=== PATIENT | female | born 1995 | race Caucasian/White ===

== ENCOUNTER 2018-01-31 15:08 | Outpatient (CLI) | payer OTHER ==
--- NOTE | 2018-01-31 16:57 | RADIOLOGY REPORT (SQ) ---
EXAM DESCRIPTION: U/S PROFILE W/O STRESS COMPLETED DATE/TIME: 01/31/2018 4:48 pm REASON FOR STUDY: Non reactive NST COMPARISON: None. TECHNIQUE: Limited fields-scale realtime and static images of the fetus to measure specified parameter s. LIMITATIONS: None. FINDINGS: HEART RATE: 136 -150 beats per minute. KELSEY: 14.3 cm. BREATHING MOVEMENT: 2 points. MOVEMENT: 2 points. POSTURE AND TONE: 2 points. QUALITATIVE KELSEY: 2 points. OTHER: No other significant finding. IMPRESSION: BIOPHYSICAL PROFILE: 06/12. Trimester of : Third - 28 weeks to delivery COMMENT: BREATHING MOVEMENTS: 2 POINTS: PRESENT 0 POINTS: ABSENT MOTION: 2 POINTS: PRESENT 0 POINTS: ABSENT TONE: 2 POINTS: PRESENT 0 POINTS: ABSENT AMNIOTIC FLUID VOLUME: 2 POINTS: LARGEST POCKET GREATER THAN 2 CM DEPTH. 0 POINTS: NO POCKET OF 2 CM. TECHNICAL DOCUMENTATION: JOB ID: [id number] [employer]- All Rights Reserved Reading location - IP/workstation name: VI
--- NOTE | 2018-01-31 17:30 | Non Stress Test Report ---
Non Stress Test Datetime Report Generated by CPN: 01/31/2018 17:29 INDICATION Indication for Study: Diabetes Mellitus; Ordered by Provider MONITORING Monitor Explained: Monitor Explained; Test Explained; Patient Verbalized Understanding Time on Monitor: 01/31/2018 17:02 Time off Monitor: 01/31/2018 17:22 NST Duration: 20 NST INTERVENTIONS NST Interventions: PO Hydration; For Biophysical Profile Physician Notified NST: DrDustin Castaneda, H. Ezio, CNM BABY A: [id number] BABY A Movement : Present Contraction Frequency : none FHR Baseline : 140 Accelerations : 10X10 Decelerations : None Variability : Moderate 6-25bpm NST Review: Questionable if Meets Criteria for Reactive NST NST Review and Verified By : JDustinField, RN NST Results: Questionable NST COMMENTS NST Comments: BPP 8/8, providers reviewed strip NST REPORT Report Trigger: Send Report
== END 2018-01-31 17:20 | disposition home or self-care (01) ==
LOC: LC 15:08
PROVIDERS: ATTEND Student in an Organized Health Care Education/Training Program
PROC: 4A1HXCZ Monitoring of Products of Conception, Cardiac Rate, External Approach (ICD-10-PCS; principal; 2018-01-31)
DX: O24.913 Unspecified diabetes mellitus in pregnancy, third trimester (principal); Z3A.32 32 weeks gestation of pregnancy
CPT/HCPCS: 76819

== ENCOUNTER 2018-02-03 21:19 | Outpatient (CLI) | payer OTHER ==
[2018-02-03 22:14] LABS: URINE AMPHETAMINES SCREEN NEGATIVE; URINE BARBITURATES SCREEN NEGATIVE; URINE BENZODIAZEPINES SCREEN NEGATIVE; URINE COCAINE SCREEN NEGATIVE; URINE MARIJUANA (THC) SCREEN NEGATIVE; URINE METHADONE SCREEN NEGATIVE; URINE PHENCYCLIDINE SCREEN NEGATIVE
[2018-02-03 22:15] LABS: CALCIUM OXALATE CRYSTALS,URINE MODERATE /HPF
[2018-02-03 22:16] LABS: APPEARANCE,URINE CLEAR; BILIRUBIN,URINE NEGATIVE (NEGATIVE); COLOR,URINE STRAW; GLUCOSE, URINE NEGATIVE (NEGATIVE); KETONES,URINE NEGATIVE (NEGATIVE); PROTEIN,URINE NEGATIVE (NEGATIVE); URINE SPECIFIC GRAVITY 1.015; UROBILINOGEN,URINE NEGATIVE mg/dL (<2.0)
[2018-02-03 22:17] LABS: LEUKOCYTE ESTERASE,URINE NEGATIVE (NEGATIVE); NITRITE,URINE NEGATIVE (NEGATIVE)
--- NOTE | 2018-02-03 23:37 | Non Stress Test Report ---
Non Stress Test Datetime Report Generated by CPN: 02/03/2018 23:37 DEMOGRAPHIC EGA NST: 32.3 INDICATION Indication for Study: Ordered by Provider URINE RESULTS Urine Protein, NST: Negative Urine Ketones - NST: Negative Urine Glucose - NST: Negative Urine Blood - NST: Negative MONITORING Monitor Explained: Monitor Explained; Test Explained; Patient Verbalized Understanding Time on Monitor: 02/03/2018 21:45 Time off Monitor: 02/03/2018 23:21 NST Duration: 96 NST INTERVENTIONS NST Interventions: PO Hydration; Reposition Patient; Vibroacoustic Stim; Other NST Interventions Other: popsicle Physician Notified NST: Dr. Ortiz BABY A: [id number] BABY A Movement : Present Contraction Frequency : x1 FHR Baseline : 135 Accelerations : 15X15 Decelerations : None Variability : Moderate 6-25bpm NST Review: Meets Criteria for Reactive NST NST Review and Verified By : CHANTEL Arriaza NST Results: Reactive NST REPORT Report Trigger: Send Report
== END 2018-02-03 23:29 | disposition home or self-care (01) ==
LOC: LC 21:19
PROVIDERS: ATTEND Obstetrics & Gynecology Gynecology
DX: Z34.90 Encounter for supervision of normal pregnancy, unspecified, unspecified trimester (principal)
CPT/HCPCS: 59025; 80307; 81001

== ENCOUNTER 2018-02-18 15:46 | Outpatient (CLI) | payer OTHER ==
--- NOTE | 2018-02-18 16:40 | Non Stress Test Report ---
Non Stress Test Datetime Report Generated by CPN: 02/18/2018 16:39 DEMOGRAPHIC EGA NST: 34.4 INDICATION Indication for Study: Diabetes Mellitus MONITORING Monitor Explained: Monitor Explained; Test Explained; Patient Verbalized Understanding Time on Monitor: 02/18/2018 15:56 Time off Monitor: 02/18/2018 16:33 NST Duration: 37 NST INTERVENTIONS NST Interventions: PO Hydration; Reposition Patient Physician Notified NST: J HUERTA, CNM BABY A: [id number] BABY A Movement : Present Contraction Frequency : NONE FHR Baseline : 135 Accelerations : 15X15 Decelerations : None Variability : Moderate 6-25bpm NST Review: Meets Criteria for Reactive NST NST Review and Verified By : CHANTEL Edwards Results: Reactive NST REPORT Report Trigger: Send Report
== END 2018-02-18 16:37 | disposition home or self-care (01) ==
LOC: LC 15:46
PROVIDERS: ATTEND Obstetrics & Gynecology
PROC: 4A1HXCZ Monitoring of Products of Conception, Cardiac Rate, External Approach (ICD-10-PCS; principal; 2018-02-18)
DX: O13.3 Gestational [pregnancy-induced] hypertension without significant proteinuria, third trimester (principal); Z3A.37 37 weeks gestation of pregnancy
CPT/HCPCS: 59025

== ENCOUNTER 2018-02-25 12:25 | Outpatient (CLI) | payer OTHER ==
--- NOTE | 2018-02-25 14:08 | Non Stress Test Report ---
Non Stress Test Datetime Report Generated by CPN: 02/25/2018 14:07 DEMOGRAPHIC EGA NST: 35.4 INDICATION Indication for Study (NST) Other: growth restriction VITAL SIGNS Temperature - NST: 97.6 Pulse - NST: 82 RESP - NST: 18 NBPSYS NST: 123 NBPDIA NST: 66 MONITORING Monitor Explained: Monitor Explained; Test Explained; Patient Verbalized Understanding Time on Monitor: 02/25/2018 12:37 Time off Monitor: 02/25/2018 13:47 NST Duration: 70 NST INTERVENTIONS NST Interventions: PO Hydration; Reposition Patient Physician Notified NST: DR JACKMAN BABY A: [id number] BABY A Movement : Present Contraction Frequency : NONE FHR Baseline : 135 Accelerations : 10X10 Decelerations : None Variability : Moderate 6-25bpm NST Review: Does Not Meet Criteria for Reactive NST NST Review and Verified By : J.Field, RN NST Results: Non-Reactive NST COMMENTS NST Comments: BPP 6/8 @ [facility] TODAY NST REPORT Report Trigger: Send Report
== END 2018-02-25 13:51 | disposition home or self-care (01) ==
LOC: LC 12:25
PROVIDERS: ATTEND Obstetrics & Gynecology Gynecology
PROC: 4A1HXCZ Monitoring of Products of Conception, Cardiac Rate, External Approach (ICD-10-PCS; principal; 2018-02-25)
DX: O36.5930 Maternal care for other known or suspected poor fetal growth, third trimester, not applicable or unspecified (principal); Z3A.35 35 weeks gestation of pregnancy
CPT/HCPCS: 59025

== ENCOUNTER 2018-02-26 13:06 | Outpatient (CLI) | payer OTHER ==
--- NOTE | 2018-02-26 14:23 | RADIOLOGY REPORT (SQ) ---
EXAM DESCRIPTION: U/S PROFILE W/O STRESS COMPLETED DATE/TIME: 02/26/2018 2:10 pm REASON FOR STUDY: REPEAT BPP- /8 ON 02/25/18; 35.5 WEEKS COMPARISON: Limited Ob ultrasound today TECHNIQUE: Limited fields-scale realtime and static images of the fetus to measure specified parameter s. LIMITATIONS: None. FINDINGS: HEART RATE: 152 beats per minute. KELSEY: Total, 10.8 cm. BREATHING MOVEMENT: 2 points. MOVEMENT: 2 points. POSTURE AND TONE: 2 points. QUALITATIVE KELSEY: 2 points. OTHER: No other significant finding. IMPRESSION: BIOPHYSICAL PROFILE: 06/12. Trimester of : Third - 28 weeks to delivery COMMENT: BREATHING MOVEMENTS: 2 POINTS: PRESENT 0 POINTS: ABSENT MOTION: 2 POINTS: PRESENT 0 POINTS: ABSENT TONE: 2 POINTS: PRESENT 0 POINTS: ABSENT AMNIOTIC FLUID VOLUME: 2 POINTS: LARGEST POCKET GREATER THAN 2 CM DEPTH. 0 POINTS: NO POCKET OF 2 CM. TECHNICAL DOCUMENTATION: JOB ID: [id number] [employer]- All Rights Reserved Reading location - IP/workstation name: [email or web address]
--- NOTE | 2018-02-26 14:58 | Non Stress Test Report ---
Non Stress Test Datetime Report Generated by CPN: 02/26/2018 14:57 DEMOGRAPHIC EGA NST: 35.5 INDICATION Indication for Study: Ordered by Provider VITAL SIGNS Temperature - NST: 98.3 Pulse - NST: 83 RESP - NST: 18 NBPSYS NST: 130 NBPDIA NST: 70 MONITORING Monitor Explained: Monitor Explained; Test Explained Time on Monitor: 02/26/2018 13:16 Time off Monitor: 02/26/2018 13:44 NST Duration: 28 NST INTERVENTIONS NST Interventions: PO Hydration; Reposition Patient Physician Notified NST: Dr. Anthony, Provider reviewed strip BABY A: [id number] BABY A Movement : Present Contraction Frequency : None traced FHR Baseline : 145 Accelerations : 15X15 Decelerations : None Variability : Moderate 6-25bpm NST Review: Meets Criteria for Reactive NST NST Review and Verified By : CHANTEL Gastelum NST Results: Reactive NST REPORT Report Trigger: Send Report
== END 2018-02-26 14:27 | disposition home or self-care (01) ==
LOC: LC 13:06
PROVIDERS: ATTEND Obstetrics & Gynecology
PROC: 4A1HXCZ Monitoring of Products of Conception, Cardiac Rate, External Approach (ICD-10-PCS; principal; 2018-02-26)
DX: Z36.89 Encounter for other specified antenatal screening (principal)
CPT/HCPCS: 76819

== ENCOUNTER 2018-03-06 18:20 | Outpatient (CLI) | payer OTHER ==
[2018-03-06 19:06] LABS: APPEARANCE,URINE SLIGHTLY-CLOUDY; BILIRUBIN,URINE NEGATIVE (NEGATIVE); CALCIUM OXALATE CRYSTALS,URINE MANY /HPF; COLOR,URINE YELLOW; GLUCOSE, URINE NEGATIVE (NEGATIVE); KETONES,URINE NEGATIVE (NEGATIVE); LEUKOCYTE ESTERASE,URINE TRACE (NEGATIVE); NITRITE,URINE NEGATIVE (NEGATIVE); PROTEIN,URINE NEGATIVE (NEGATIVE); UROBILINOGEN,URINE NEGATIVE mg/dL (<2.0)
[2018-03-06 19:15] LABS: URINE AMPHETAMINES SCREEN NEGATIVE; URINE BARBITURATES SCREEN NEGATIVE; URINE BENZODIAZEPINES SCREEN NEGATIVE; URINE COCAINE SCREEN NEGATIVE; URINE MARIJUANA (THC) SCREEN NEGATIVE; URINE METHADONE SCREEN NEGATIVE; URINE PHENCYCLIDINE SCREEN NEGATIVE
--- NOTE | 2018-03-06 20:37 | Non Stress Test Report ---
Non Stress Test Datetime Report Generated by CPN: 03/06/2018 20:36 DEMOGRAPHIC EGA NST: 36.6 INDICATION Indication for Study: Ordered by Provider; Other Indication for Study (NST) Other: LC URINE RESULTS Urine Protein, NST: Negative Urine Ketones - NST: Negative Urine Glucose - NST: Negative Urine Blood - NST: Negative MONITORING Monitor Explained: Monitor Explained; Test Explained; Patient Verbalized Understanding Time on Monitor: 03/06/2018 18:36 Time off Monitor: 03/06/2018 20:06 NST Duration: 90 NST INTERVENTIONS NST Interventions: PO Hydration; Reposition Patient Physician Notified NST: Dr Barillas BABY A: [id number] BABY A Movement : Present Contraction Frequency : none FHR Baseline : 135 Accelerations : 15X15 Decelerations : None Variability : Moderate 6-25bpm NST Review: Meets Criteria for Reactive NST NST Review and Verified By : Marie Davenport RN Results: Reactive NST REPORT Report Trigger: Send Report
== END 2018-03-06 20:16 | disposition home or self-care (01) ==
LOC: LC 18:20
PROVIDERS: ATTEND Obstetrics & Gynecology
PROC: 4A1HXCZ Monitoring of Products of Conception, Cardiac Rate, External Approach (ICD-10-PCS; principal; 2018-03-06)
DX: O47.03 False labor before 37 completed weeks of gestation, third trimester (principal); Z3A.36 36 weeks gestation of pregnancy
CPT/HCPCS: 59025; 80307; 81001

== ENCOUNTER 2018-03-09 16:11 | Outpatient (CLI) | payer OTHER ==
[2018-03-09 16:48] LABS: APPEARANCE,URINE SLIGHTLY-CLOUDY; BILIRUBIN,URINE NEGATIVE (NEGATIVE); COLOR,URINE YELLOW; GLUCOSE, URINE NEGATIVE (NEGATIVE); KETONES,URINE NEGATIVE (NEGATIVE); LEUKOCYTE ESTERASE,URINE NEGATIVE (NEGATIVE); NITRITE,URINE NEGATIVE (NEGATIVE); PROTEIN,URINE NEGATIVE (NEGATIVE); URINE SPECIFIC GRAVITY 1.023; UROBILINOGEN,URINE NEGATIVE mg/dL (<2.0)
[2018-03-09 16:56] LABS: AMNISURE (ROM) NEGATIVE (NEGATIVE)
--- NOTE | 2018-03-09 17:19 | Non Stress Test Report ---
Non Stress Test Datetime Report Generated by CPN: 03/09/2018 17:19 DEMOGRAPHIC EGA NST: 37.2 INDICATION Indication for Study: Other Indication for Study (NST) Other: lc for srom VITAL SIGNS Temperature - NST: 98.2 RESP - NST: 14 MONITORING Monitor Explained: Monitor Explained; Test Explained; Patient Verbalized Understanding Time on Monitor: 03/09/2018 16:50 Time off Monitor: 03/09/2018 17:15 NST Duration: 25 NST INTERVENTIONS NST Interventions: PO Hydration; Reposition Patient Physician Notified NST: Dr Rasheed Feliciano BABY A: [id number] BABY A Movement : Present Contraction Frequency : 0 FHR Baseline : 125 Accelerations : 15X15 Decelerations : None Variability : Moderate 6-25bpm NST Review: Meets Criteria for Reactive NST NST Review and Verified By : Remedios Isaacs RN NST Results: Reactive NST REPORT Report Trigger: Send Report
[2018-03-09 17:40] LABS: URINE AMPHETAMINES SCREEN NEGATIVE; URINE BARBITURATES SCREEN NEGATIVE; URINE BENZODIAZEPINES SCREEN NEGATIVE; URINE COCAINE SCREEN NEGATIVE; URINE MARIJUANA (THC) SCREEN NEGATIVE; URINE METHADONE SCREEN NEGATIVE; URINE PHENCYCLIDINE SCREEN NEGATIVE
== END 2018-03-09 17:33 | disposition home or self-care (01) ==
LOC: LC 16:11
PROVIDERS: ATTEND Obstetrics & Gynecology
PROC: 4A1HXCZ Monitoring of Products of Conception, Cardiac Rate, External Approach (ICD-10-PCS; principal; 2018-03-09)
DX: Z34.93 Encounter for supervision of normal pregnancy, unspecified, third trimester (principal)
CPT/HCPCS: 59025; 80307; 81005; 84112